=== PATIENT | male | born 1955 | race Caucasian/White ===

== ENCOUNTER → 2023-07-08 08:46 | Day surgery (SDC) | payer MEDICARE, OTHER, SELFPAY ==
[2023-07-08 10:10] LABS: Hemoglobin 14.6 g/dL (13.0-18.0); Mean Corpuscular Hgb 30.2 pg (27.0-31.0); Mean Platelet Volume 10.3 fL (7.4-10.4); Platelet Count 160 10^3/uL (130-400); Red Blood Cell Count 4.83 10^6/uL (4.70-6.10); Red Cell Dist. Width 12.5 % (11.5-14.5); White Blood Cell Count 4.4 10^3/uL (4.8-10.8)
== END ==
LOC: SDSPAT 08:46
PROVIDERS: ATTENDING PHYSICIAN Otolaryngology Facial Plastic Surgery; FAMILY PHYSICIAN Family Medicine
DX: Z01.812 Encounter for preprocedural laboratory examination (principal); Z01.810 Encounter for preprocedural cardiovascular examination; D17.0 Benign lipomatous neoplasm of skin and subcutaneous tissue of head, face and neck
CPT/HCPCS: 93005; 36415; 85027

== ENCOUNTER → 2023-07-13 06:47 | Outpatient (REF) | payer MEDICARE, OTHER, SELFPAY | LOC: RAD 06:47 | PROVIDERS: ATTENDING PHYSICIAN Otolaryngology Facial Plastic Surgery; FAMILY PHYSICIAN Family Medicine | DX: D17.0 Benign lipomatous neoplasm of skin and subcutaneous tissue of head, face and neck (principal) | CPT/HCPCS: 70490 ==

== ENCOUNTER 2023-07-15 06:00 | Day surgery (SDC) | payer MEDICARE, OTHER, SELFPAY ==
[2023-07-08 09:02] VITALS: BMI 38.9
[2023-07-15] VITALS (7 sets, daily range): BP systolic 111–172; BP diastolic 72–88; BMI 38.9
[2023-07-15] MEDS: NORMOSOL-R 1000 IV (07:59)
== END 2023-07-15 12:30 | disposition home or self-care (01) ==
LOC: SDS 06:00
PROVIDERS: ATTENDING PHYSICIAN Otolaryngology Facial Plastic Surgery
DX: D17.0 Benign lipomatous neoplasm of skin and subcutaneous tissue of head, face and neck (principal); R22.1 Localized swelling, mass and lump, neck
CPT/HCPCS: 21556; 88304

== ENCOUNTER → 2023-08-22 12:01 | Outpatient (REF) | payer MEDICARE, OTHER, SELFPAY | LOC: MRI 12:01 | PROVIDERS: ATTENDING PHYSICIAN Physician Assistant Surgical; FAMILY PHYSICIAN Family Medicine | DX: M25.552 Pain in left hip (principal); M54.50 Low back pain, unspecified; M54.17 Radiculopathy, lumbosacral region | CPT/HCPCS: 72148; 73721 ==

== ENCOUNTER → 2024-11-07 08:17 | Outpatient (REF) | payer MEDICARE, OTHER, SELFPAY | LOC: RAD 08:17 | PROVIDERS: ATTENDING PHYSICIAN Podiatrist Foot & Ankle Surgery; FAMILY PHYSICIAN Family Medicine | DX: M76.61 Achilles tendinitis, right leg (principal); M25.571 Pain in right ankle and joints of right foot | CPT/HCPCS: 76882 ==